=== PATIENT | male | born 1970 | race Caucasian/White ===

== ENCOUNTER → 2018-01-01 | Outpatient (CLI) | payer BC ==
--- NOTE | 2018-01-01 16:07 | Diagnostic Imaging Report ---
INDICATION: Right scrotal mass. TECHNIQUE: Multiple real-time grayscale images were obtained over the scrotum in various projections bilaterally. Color Doppler images were also obtained. FINDINGS: The right testicle measures 4.2 x 2.6 x 2.6 cm and the left testicle measures 3.8 x 3.0 x 2.3 cm. Both testes demonstrate homogeneous echotexture. No discrete testicular mass is seen. There is normal blood flow bilaterally. There appear to be small hydroceles bilaterally. There is a large epididymal head cyst on the right measuring 4.0 x 2.4 x 4.2 cm. Left epididymis contains two small cysts in the head approximately 4 mm in size. IMPRESSION: 1. No evidence of testicular mass or vascular compromise. 2. Bilateral hydroceles. 3. Bilateral epididymal cysts, largest on the right approximate 4 cm in size, likely accounting for the patient's palpable abnormality. Dictated by: Dictated on workstation # [id number]
== END ==
LOC: RAD 13:53
PROVIDERS: ATTEND Nurse Practitioner Community Health
DX: N43.3 Hydrocele, unspecified (principal); N50.3 Cyst of epididymis
CPT/HCPCS: 76870